=== PATIENT | male | born 1965 | race Caucasian/White ===

== ENCOUNTER 2020-12-06 18:21 | Inpatient (IN) | payer OTHER ==
[2020-12-06 18:50] VITALS: BMI 25.8
[2020-12-06] MEDS ORDERED: MAG HYDROX/AL HYDROX/SIMETH 30 ML UNIT-DOSE CUP PO PRN (20:53)
[2020-12-06] MEDS ORDERED: MAGNESIUM HYDROX 2400MG/30ML ORAL SUSPENSION 30 ML CUP PO PRN (20:53)
[2020-12-06] MEDS ORDERED: MAGNESIUM CITRATE 300 ML BOTTLE PO PRN (20:53)
[2020-12-06] MEDS ORDERED: NICOTINE POLACRILEX 2 MG GUM BUC PRN (20:53)
[2020-12-06] MEDS ORDERED: hydrOXYzine PAMOATE 25 MG CAPSULE (FP) PO PRN (20:53)
[2020-12-06] MEDS ORDERED: ONDANSETRON *ODT* 4 MG TABLET SL PRN (20:53)
[2020-12-06] MEDS ORDERED: ACETAMINOPHEN 325 MG TABLET (FP) PO PRN ×2 (20:53)
[2020-12-06] MEDS ORDERED: BISMUTH SUBSALICYLATE 524 MG/30 ML PO PRN (20:53)
[2020-12-06] MEDS ORDERED: IBUPROFEN 400 MG TABLET (FP) PO PRN (20:53)
[2020-12-06] MEDS ORDERED: MENTHOL/PHENOL 1 EACH UD MM PRN (20:53)
[2020-12-06] MEDS ORDERED: cloNIDine HCL 0.1 MG TABLET PO PRN (20:56)
[2020-12-06] MEDS: MELATONIN 5 MG TABLETS PO SCH (23:58)
[2020-12-06] MEDS: THIAMINE HCL 100 MG TABLET (FP) PO SCH (23:59)
[2020-12-07] MEDS ORDERED: cloNIDine HCL 0.1 MG TABLET PO PRN (09:26)
[2020-12-07] MEDS ORDERED: methaDONE HCL 10 MG TABLET (FOR DETOX USE ONLY) PO ONE (09:26)
[2020-12-07 10:01] LABS: HEMATOCRIT 40.3 % (35.4-49); HEMOGLOBIN 13.8 GM/dL (11.7-16.9); MCH 28.9 pg (25.7-33.7); MCHC 34.3 g/dl (32.0-35.9); MEAN CELL VOLUME 84.2 fl (80-96); MEAN PLT VOLUME 7.9 fl (7.5-11.1); PLATELET COUNT 346 10^3/uL (134-434); RBC 4.78 M/mm3 (4.00-5.60); RDW 15.5 % (11.9-15.9); WHITE BLOOD COUNT 7.4 K/mm3 (4.0-10.0)
[2020-12-07 10:09] LABS: BLOOD UREA NITROGEN 12.4 mg/dL (7-18)
[2020-12-07 10:11] LABS: CALCIUM 8.6 mg/dL (8.5-10.1)
[2020-12-07 10:12] LABS: ALBUMIN 3.2 g/dl (3.4-5.0)
[2020-12-07 10:15] LABS: CREATININE 0.7 mg/dL (0.55-1.3)
[2020-12-07 10:17] LABS: BILIRUBIN,TOTAL 0.2 mg/dL (0.2-1); TOT PROT 6.2 g/dl (6.4-8.2)
[2020-12-07] MEDS: METHOCARBAMOL 500 MG TABLET PO PRN (10:34)
[2020-12-07] MEDS: PRENATAL VITAMINS W/ FOLIC ACID TABLET (FP) PO SCH (10:34)
[2020-12-07] MEDS: diazePAM 5 MG TABLET PO PRN ×2 (10:34→22:09)
[2020-12-07] MEDS: MELATONIN 5 MG TABLETS PO SCH (22:09)
[2020-12-07] MEDS: THIAMINE HCL 100 MG TABLET (FP) PO SCH (22:09)
[2020-12-08] MEDS: METHOCARBAMOL 500 MG TABLET PO PRN ×2 (02:51→10:35)
[2020-12-08] MEDS ORDERED: methaDONE HCL 10 MG TABLET (FOR DETOX USE ONLY) ONE (10:02)
[2020-12-08] MEDS: diazePAM 5 MG TABLET PO PRN (10:33)
[2020-12-08] MEDS: PRENATAL VITAMINS W/ FOLIC ACID TABLET (FP) PO SCH (10:34)
[2020-12-08 12:41] VITALS: BP 100/78; PULSE 70; TEMP 96.8
[2020-12-09] MEDS ORDERED: methaDONE HCL 10 MG TABLET (FOR DETOX USE ONLY) PO ONE (10:00)
[2020-12-11] MEDS ORDERED: methaDONE HCL 10 MG TABLET (FOR DETOX USE ONLY) PO ONE (10:00)
== END 2020-12-08 21:15 | disposition left against medical advice (07) | DRG 770 ==
LOC: YASAS 18:21 → UNDOADMIN 23:04 → Y3N 23:04
PROVIDERS: ADMIT Allergy & Immunology; ATTEND Allergy & Immunology
PROC: HZ2ZZZZ Detoxification Services for Substance Abuse Treatment (ICD-10-PCS; principal; 2020-12-06)
DX: F11.23 Opioid dependence with withdrawal (principal); F17.210 Nicotine dependence, cigarettes, uncomplicated; Z88.8 Allergy status to other drugs, medicaments and biological substances; Z59.0 Homelessness
CPT/HCPCS: 36415; 80053; 85027; 86780; C9803; U0003; U0005